=== PATIENT | female | born 1990 | race Caucasian/White ===

== ENCOUNTER 2017-09-13 23:48 | Emergency (ER) | payer SELFPAY, BC ==
[2017-09-14] MEDS: PERCOCET 5MG/325MG TAB PO (01:40)
[2017-09-14] MEDS: LIDOCAINE 1% MDV 20ML VIAL SC (01:40)
[2017-09-14] MEDS: BACTRIM 160MG/800MG DS TAB PO (01:40)
[2017-09-14] MEDS: OXYCODONE/APAP 5MG/325MG(BULK FOR ED) 1 TABLET PO (02:58)
== END 2017-09-14 03:02 | disposition home or self-care (01) ==
LOC: M ED 23:48
DX: L02.31 Cutaneous abscess of buttock (principal); Z88.8 Allergy status to other drugs, medicaments and biological substances; F17.210 Nicotine dependence, cigarettes, uncomplicated
CPT/HCPCS: 87186

== ENCOUNTER 2017-09-25 16:09 | Emergency (ER) | payer MEDICAID, SELFPAY | END 2017-09-25 18:55 | disposition home or self-care (01) | LOC: M ED 16:09 | DX: S90.32XA Contusion of left foot, initial encounter (principal); S90.812A Abrasion, left foot, initial encounter; S90.811A Abrasion, right foot, initial encounter; S80.811A Abrasion, right lower leg, initial encounter; S80.812A Abrasion, left lower leg, initial encounter; X58.XXXA Exposure to other specified factors, initial encounter; Y92.098 Other place in other non-institutional residence as the place of occurrence of the external cause; F17.200 Nicotine dependence, unspecified, uncomplicated; Z88.8 Allergy status to other drugs, medicaments and biological substances | CPT/HCPCS: 73610 ==